=== PATIENT | male | born 1955 | race Caucasian/White ===

== ENCOUNTER → 2021-07-11 | Day surgery (SDC) | payer MEDICARE ==
[~2021-07-11] VITALS: Ht 175.2 cm; Wt 83.9 kg
[~2021-07-11] MED LIST: ASPIRIN CHEWABL81 M1 PO; AZOR 10-20 MG1 EACH PO; BLOOD PRESSURE PO; CARAFATE1 G1 PO; CARDIO OMEGA B1 EACH PO; CIPROFLOXACIN500 MG PO; FLAGYL500 MG PO; FLONASE ALLERG9.9 ML NS; HYDROCODONE BIT1 T11 PO; PREDNISONE10 MG PO; PROZAC20 MG PO; ROBITUSSIN AC 110 ML PO; VENTOLIN H0.09 MG/AC INH; [UNRECOGNIZED DRUG - OTHER] PO
[2021-07-11 09:59] VITALS: BP 118/76
[2021-07-11 11:15] VITALS: BP 95/46
[2021-07-11 11:30] VITALS: BP 98/46
[2021-07-11 11:45] VITALS: BP 99/50
== END ==
LOC: SDC 07-08 09:30
PROVIDERS: ATTEND Surgery
DX: Z12.11 Encounter for screening for malignant neoplasm of colon (principal); K63.5 Polyp of colon; K29.50 Unspecified chronic gastritis without bleeding; K57.30 Diverticulosis of large intestine without perforation or abscess without bleeding; I10 Essential (primary) hypertension; K21.9 Gastro-esophageal reflux disease without esophagitis; J45.909 Unspecified asthma, uncomplicated; F41.9 Anxiety disorder, unspecified; F32.9 Major depressive disorder, single episode, unspecified; Z86.73 Personal history of transient ischemic attack (TIA), and cerebral infarction without residual deficits; Z20.822 Contact with and (suspected) exposure to COVID-19

== ENCOUNTER → 2021-08-19 | Outpatient (CLI) | payer MEDICARE | END | disposition home or self-care (01) | LOC: COVID19 17:17 | PROVIDERS: ATTEND Internal Medicine | DX: Z11.52 Encounter for screening for COVID-19 (principal) ==